=== PATIENT | male | born 1940 | race Caucasian/White ===

== ENCOUNTER 2017-11-08 14:40 | Inpatient (IN) | payer MEDICARE, BC ==
[~2017-11-08] VITALS: Ht 182.9 cm; Wt 81.0 kg
[2017-11-08] MEDS ORDERED: PLEASE ENTER HEIGHT AND WEIGHT MC SCH (14:49)
[2017-11-08] MEDS ORDERED: BROM1.7D9 EACHEYE (14:56)
[2017-11-08] MEDS ORDERED: SODIUM CHLORIDE FLUSH 10ML SYR IVF ONE (15:00)
[2017-11-08] MEDS ORDERED: methylPREDNISolone SOD SUCC 125 MG/2 ML IVP ONE (15:00)
[2017-11-08] MEDS ORDERED: methylPREDNISolone SOD SUCC 125 MG/2 ML ONE (15:01)
[2017-11-08] MEDS ORDERED: ACETAMINOPHEN 325 MG TABLET ONE (15:02)
[2017-11-08 15:15] LABS: BASOPHILS # (AUTO) 0.01 x10^3/uL (0-0.1); BASOPHILS % (AUTO) 0 % (0-1); EOSINOPHILS % (AUTO) 0 % (1-7); LYMPHOCYTES # (AUTO) 0.35 x10^3/uL (1-3.4); LYMPHOCYTES % (AUTO) 2 % (22-44); MD NO; MEAN CORPUSCULAR HEMOGLOBIN 30.1 pg (27.5-34.5); MEAN CORPUSCULAR HGB CONC 33.2 g/dL (33.2-36.2); MEAN CORPUSCULAR VOLUME 90.8 fL (81-97); MEAN PLATELET VOLUME 7.9 fL (7.4-10.4); MONOCYTES # (AUTO) 0.64 x10^3/uL (0.2-0.8); MONOCYTES % (AUTO) 4 % (2-9); NEUTROPHILS # (AUTO) 15.34 x10^3/uL (1.8-6.8); NEUTROPHILS % (AUTO) 94 % (42-75); PLATELET COUNT 207 x10^3/uL (130-400); RED BLOOD COUNT 5.23 x10^6/uL (4.38-5.82); RED CELL DISTRIBUTION WIDTH 16.2 % (9.4-14.8)
[2017-11-08 15:23] LABS: INTERNATIONAL NORMALIZED RATIO 1.05 (0.93-1.1); PROTHROMBIN TIME 10.8 Seconds (9.6-11.5)
[2017-11-08 15:24] LABS: ALANINE AMINOTRANSFERASE 36 U/L (12-78); ALBUMIN 3.3 g/dL (3.4-5.0); ANION GAP 12 mmol/L (5-15); CALCIUM 8.2 mg/dL (8.5-10.1); CHLORIDE 104 mmol/L (98-107); CREATININE 1.46 mg/dL (0.7-1.3)
[2017-11-08 15:28] LABS: ALKALINE PHOSPHATASE 74 U/L (45-117); BILIRUBIN,TOTAL 0.5 mg/dL (0.2-1.0); TOTAL PROTEIN 8.2 g/dL (6.4-8.2)
[2017-11-08] MEDS ORDERED: AZITHROMYCIN 500 MG in SODIUM CHLORIDE 0.9% 250 ML IV ONE (15:30)
[2017-11-08] MEDS ORDERED: SODIUM CHLORIDE 0.9%, 500ML IVBOLUS ONE ×2 (15:30→17:00)
[2017-11-08] MEDS ORDERED: ACETAMINOPHEN 325 MG TABLET PO ONE (15:30)
[2017-11-08 15:31] LABS: RAPID INFLUENZA A Negative (Negative); RAPID INFLUENZA B Negative (Negative)
[2017-11-08] MEDS ORDERED: ASPIRIN 81 MG TABLET CHEW ONE (15:39)
[2017-11-08] MEDS ORDERED: ASPIRIN 81 MG TABLET CHEW PO ONE (16:00)
[2017-11-08] MEDS ORDERED: ASPIRIN 325 MG TABLET PO ONE (16:00)
[2017-11-08] MEDS ORDERED: PLEASE ENTER ALLERGIES MC SCH (16:00)
[2017-11-08] MEDS ORDERED: CEFTRIAXONE PMX 1GM/50ML 50 ML IV ONE (18:00)
[2017-11-08] MEDS ORDERED: ALBUTEROL/IPRATROPIUM 2.5MG/0.5MG, 3 ML ONE (18:23)
[2017-11-08] MEDS ORDERED: CEFTRIAXONE PMX 1GM/50ML 50 ML ONE (18:24)
[2017-11-08] MEDS ORDERED: ALBUTEROL SULFATE 2.5 MG/3 ML NPPB ONE (18:30)
[2017-11-08] MEDS ORDERED: ENOXAPARIN 100 MG/ML SQ ONE (18:30)
[2017-11-08] MEDS ORDERED: ONDANSETRON 2MG/ML, 2ML IVPush PRN (20:00)
[2017-11-08] MEDS ORDERED: ACETAMINOPHEN 325 MG TABLET PO PRN (20:00)
[2017-11-08] MEDS ORDERED: DOCUSATE 100 MG CAPSULE PO PRN (20:00)
[2017-11-08] MEDS ORDERED: BISACODYL 10 MG SUPP PR PRN (20:00)
[2017-11-08] MEDS ORDERED: HEPARIN 5,000 UNITS/ML, 1ML SQ SCH (20:00)
[2017-11-08] MEDS ORDERED: PROMETHAZINE 25 MG/ML, 1ML IM PRN (20:00)
[2017-11-08] MEDS ORDERED: ONDANSETRON ODT 4 MG PO PRN (20:00)
[2017-11-08] MEDS: SODIUM CHLORIDE 0.9% 1,000 ML IV SCH (20:38)
[2017-11-08 20:47] LABS: MD YES; MEAN CORPUSCULAR HEMOGLOBIN 29.1 pg (27.5-34.5); MEAN CORPUSCULAR VOLUME 90.8 fL (81-97); MEAN PLATELET VOLUME 8.3 fL (7.4-10.4); PLATELET COUNT 136 x10^3/uL (130-400)
[2017-11-08 20:48] LABS: BAND#(MANUAL) 4.06 x10^3/uL; BANDS%(MANUAL) 26 % (0-7); LYMPH#(MANUAL) 0.31 x10^3/uL (1-3.4); LYMPHS% (MANUAL) 2 % (22-44); MONOS#(MANUAL) 0.16 x10^3/uL (0.3-2.7); MONOS% (MANUAL) 1 % (2-9); SEG#(MANUAL) 11.08 x10^3/uL (1.8-6.8); SEGS% (MANUAL) 71 % (42-75)
[2017-11-08 20:50] LABS: <PLATELET ESTIMATE> ADEQUATE; <PLT MORPHOLOGY> NORMAL PLT MORPH; ANISOCYTOSIS 1+; POLYCHROMASIA 1+
[2017-11-08 21:17] LABS: HEMOGLOBIN A1C 6.5 % (4.2-6.3)
[2017-11-08] MEDS: ATORVASTATIN 40 MG TABLET PO SCH (21:30)
[2017-11-08] MEDS ORDERED: VANCOMYCIN PER PHARMACY MC PRN (21:30)
[2017-11-08] MEDS ORDERED: SODIUM CHLORIDE 0.9% 1,000 ML IV SCH (22:00)
[2017-11-08] MEDS ORDERED: ENOXAPARIN 100 MG/ML SQ SCH (22:30)
[2017-11-08 22:44] VITALS: BP 106/69
[2017-11-08] MEDS ORDERED: PHARMACOKINETIC MONITORING MC PRN (23:00)
[2017-11-08] MEDS ORDERED: VANCOMYCIN 1,900 MG in SODIUM CHLORIDE 0.9% 250 ML IV SCH (23:00)
[2017-11-08] MEDS ORDERED: PHARMACOKINETIC CONSULTATION MC ONE (23:00)
[2017-11-08] MEDS: PIPERACILLIN/TAZO/PMX 3.375GM 50 ML IV SCH (23:26)
[2017-11-08] MEDS: INSULIN ASPART 100 UNITS/ML, PEN SQ-INSULIN SCH (23:29)
[2017-11-09] MEDS: ALBUTEROL/IPRATROPIUM 2.5MG/0.5MG, 3 ML NPPB PRN ×4 (00:01→19:25)
[2017-11-09 02:16] VITALS: BP 101/65
[2017-11-09] MEDS ORDERED: ACETYLCYSTEINE 10%, 10ML IPPB ONE (05:30)
[2017-11-09] MEDS: PIPERACILLIN/TAZO/PMX 3.375GM 50 ML IV SCH ×4 (05:35→23:46)
[2017-11-09] MEDS: ASPIRIN 325 MG TABLET EC PO SCH (05:35)
[2017-11-09 05:36] LABS: CHLORIDE 106 mmol/L (98-107)
[2017-11-09 05:49] LABS: ALANINE AMINOTRANSFERASE 51 U/L (12-78); ALBUMIN 3.2 g/dL (3.4-5.0); ALKALINE PHOSPHATASE 67 U/L (45-117); ANION GAP 9 mmol/L (5-15); BILIRUBIN,TOTAL 0.3 mg/dL (0.2-1.0); CALCIUM 7.8 mg/dL (8.5-10.1); CHOL/HDL RATIO 4.6; CHOLESTEROL, TOTAL 158 mg/dL (140-239); CREATININE 1.56 mg/dL (0.7-1.3); HDL CHOL % 22 % (26-37); HDL CHOLESTEROL (DIRECT) 34 mg/dL (40-60); LDL CHOLESTEROL,CALCULATED 103 mg/dL (54-169); TOTAL PROTEIN 8.1 g/dL (6.4-8.2); TRIGLYCERIDES 103 mg/dL (50-200); VLDL CHOLESTEROL 21 mg/dL (0-25)
[2017-11-09 06:30] VITALS: BP 102/66
[2017-11-09] MEDS: INSULIN ASPART 100 UNITS/ML, PEN SQ-INSULIN SCH ×4 (07:00→21:32)
[2017-11-09] MEDS ORDERED: HEPARIN 5,000 UNITS/ML, 1ML IV ONE ×2 (09:00→10:00)
[2017-11-09] MEDS ORDERED: HEPARIN 25,000 UNITS/500ML PMX 500 ML IV PRN ×2 (09:00→10:00)
[2017-11-09] MEDS ORDERED: HEPARIN 5,000 UNITS/ML, 1ML IV PRN ×2 (09:00→10:00)
[2017-11-09] MEDS ORDERED: BROMSITE 0.075% OP SCH (12:00)
[2017-11-09 12:11] LABS: MEAN CORPUSCULAR HEMOGLOBIN 30.6 pg (27.5-34.5); MEAN CORPUSCULAR HGB CONC 33.3 g/dL (33.2-36.2); MEAN CORPUSCULAR VOLUME 92.1 fL (81-97); MEAN PLATELET VOLUME 8.5 fL (7.4-10.4); PLATELET COUNT 195 x10^3/uL (130-400); RED BLOOD COUNT 5.09 x10^6/uL (4.38-5.82); RED CELL DISTRIBUTION WIDTH 16.1 % (9.4-14.8)
[2017-11-09] MEDS: SODIUM CHLORIDE 0.9% 1,000 ML IV SCH (12:13)
[2017-11-09 12:29] LABS: MD YES
[2017-11-09] MEDS: FLUTICASONE/VILANTEROL 100-25MCG/INH INH SCH (12:34)
[2017-11-09] MEDS: TAMSULOSIN 0.4 MG CAP.ER.24H PO SCH (12:34)
[2017-11-09 12:35] LABS: BAND#(MANUAL) 3.03 x10^3/uL; BANDS%(MANUAL) 17 % (0-7); LYMPH#(MANUAL) 0.53 x10^3/uL (1-3.4); LYMPHS% (MANUAL) 3 % (22-44); MONOS#(MANUAL) 0.71 x10^3/uL (0.3-2.7); MONOS% (MANUAL) 4 % (2-9); SEGS% (MANUAL) 76 % (42-75)
[2017-11-09 12:36] LABS: <PLATELET ESTIMATE> ADEQUATE; <PLT MORPHOLOGY> NORMAL PLT MORPH; <RBC MORPHOLOGY> NORMAL
[2017-11-09 14:29] VITALS: BP 111/63
[2017-11-09] MEDS: methylPREDNISolone SOD SUCC 125 MG/2 ML IVPush SCH ×2 (17:26→23:46)
[2017-11-09 19:38] VITALS: BP 124/57
[2017-11-09] MEDS: ATORVASTATIN 40 MG TABLET PO SCH (21:00)
[2017-11-10 01:25] VITALS: BP 11/67
[2017-11-10 04:52] LABS: MEAN CORPUSCULAR HEMOGLOBIN 30.6 pg (27.5-34.5); MEAN CORPUSCULAR HGB CONC 33.9 g/dL (33.2-36.2); MEAN CORPUSCULAR VOLUME 90.4 fL (81-97); PLATELET COUNT 173 x10^3/uL (130-400); RED BLOOD COUNT 4.67 x10^6/uL (4.38-5.82); RED CELL DISTRIBUTION WIDTH 16.2 % (9.4-14.8)
[2017-11-10 05:00] LABS: ALBUMIN 2.8 g/dL (3.4-5.0); ANION GAP 7 mmol/L (5-15); CALCIUM 7.6 mg/dL (8.5-10.1); CHLORIDE 105 mmol/L (98-107)
[2017-11-10 05:04] LABS: ALANINE AMINOTRANSFERASE 45 U/L (12-78); ALKALINE PHOSPHATASE 50 U/L (45-117); BILIRUBIN,TOTAL 0.2 mg/dL (0.2-1.0); CREATININE 1.13 mg/dL (0.7-1.3); TOTAL PROTEIN 7.1 g/dL (6.4-8.2)
[2017-11-10] MEDS: PIPERACILLIN/TAZO/PMX 3.375GM 50 ML IV SCH ×4 (05:32→22:52)
[2017-11-10] MEDS: methylPREDNISolone SOD SUCC 125 MG/2 ML IVPush SCH ×4 (05:32→22:51)
[2017-11-10] MEDS: HEPARIN 5,000 UNITS/ML, 1ML IV PRN ×2 (05:33→11:49)
[2017-11-10] MEDS: SODIUM CHLORIDE 0.9% 1,000 ML IV SCH ×2 (05:33→22:52)
[2017-11-10 05:58] LABS: MD YES
[2017-11-10 05:59] LABS: BAND#(MANUAL) 1.57 x10^3/uL; BANDS%(MANUAL) 12 % (0-7); LYMPH#(MANUAL) 0.39 x10^3/uL (1-3.4); LYMPHS% (MANUAL) 3 % (22-44); MONOS#(MANUAL) 0.13 x10^3/uL (0.3-2.7); MONOS% (MANUAL) 1 % (2-9); SEGS% (MANUAL) 84 % (42-75)
[2017-11-10 06:00] LABS: <PLATELET ESTIMATE> ADEQUATE; <RBC MORPHOLOGY> NORMAL
[2017-11-10 06:01] LABS: LARGE PLATELETS 1+
[2017-11-10 06:36] VITALS: BP 122/74
[2017-11-10] MEDS: ASPIRIN 325 MG TABLET EC PO SCH (07:57)
[2017-11-10] MEDS: TAMSULOSIN 0.4 MG CAP.ER.24H PO SCH (07:57)
[2017-11-10] MEDS: INSULIN ASPART 100 UNITS/ML, PEN SQ-INSULIN SCH ×4 (07:58→20:22)
[2017-11-10] MEDS: FLUTICASONE/VILANTEROL 100-25MCG/INH INH SCH (07:58)
[2017-11-10] MEDS: BROMSITE 0.075% OP SCH (07:58)
[2017-11-10] MEDS: VANCOMYCIN 1,600 MG in SODIUM CHLORIDE 0.9% 250 ML IV SCH (13:26)
[2017-11-10 13:56] VITALS: BP 119/76
[2017-11-10 16:35] LABS: CLOSTRIDIUM DIFFICILE ANTIGEN NEGATIVE; CLOSTRIDIUM DIFFICILE TOXIN NEGATIVE (Negative)
[2017-11-10] MEDS: ATORVASTATIN 40 MG TABLET PO SCH (20:20)
[2017-11-10 20:22] VITALS: BP 145/79
[2017-11-11 00:32] VITALS: BP 145/81
[2017-11-11] MEDS: PIPERACILLIN/TAZO/PMX 3.375GM 50 ML IV SCH ×3 (05:19→16:51)
[2017-11-11] MEDS: methylPREDNISolone SOD SUCC 125 MG/2 ML IVPush SCH ×3 (05:19→16:50)
[2017-11-11] MEDS: ASPIRIN 325 MG TABLET EC PO SCH (05:19)
[2017-11-11 05:58] LABS: BASOPHILS % (AUTO) 0 % (0-1); EOSINOPHILS % (AUTO) 0 % (1-7); LYMPHOCYTES # (AUTO) 0.43 x10^3/uL (1-3.4); LYMPHOCYTES % (AUTO) 3 % (22-44); MD NO; MEAN CORPUSCULAR HEMOGLOBIN 30.1 pg (27.5-34.5); MEAN CORPUSCULAR HGB CONC 33.3 g/dL (33.2-36.2); MEAN CORPUSCULAR VOLUME 90.3 fL (81-97); MONOCYTES # (AUTO) 0.57 x10^3/uL (0.2-0.8); MONOCYTES % (AUTO) 4 % (2-9); NEUTROPHILS % (AUTO) 92 % (42-75); PLATELET COUNT 183 x10^3/uL (130-400); RED BLOOD COUNT 4.62 x10^6/uL (4.38-5.82); RED CELL DISTRIBUTION WIDTH 15.5 % (9.4-14.8)
[2017-11-11] MEDS: HEPARIN 25,000 UNITS/500ML PMX 500 ML IV PRN ×2 (05:59→22:50)
[2017-11-11 06:10] LABS: CHLORIDE 103 mmol/L (98-107)
[2017-11-11 06:37] LABS: ANION GAP 8 mmol/L (5-15); CREATININE 0.93 mg/dL (0.7-1.3)
[2017-11-11] MEDS: HEPARIN 5,000 UNITS/ML, 1ML IV PRN ×2 (06:43→14:01)
[2017-11-11 06:50] VITALS: BP 152/85
[2017-11-11] MEDS: TAMSULOSIN 0.4 MG CAP.ER.24H PO SCH (08:09)
[2017-11-11] MEDS: FLUTICASONE/VILANTEROL 100-25MCG/INH INH SCH (08:09)
[2017-11-11] MEDS: BROMSITE 0.075% OP SCH (08:10)
[2017-11-11] MEDS: INSULIN ASPART 100 UNITS/ML, PEN SQ-INSULIN SCH ×4 (08:10→21:55)
[2017-11-11] MEDS ORDERED: FUROSEMIDE 20 MG/2 ML IV ONE (10:00)
[2017-11-11] MEDS: ALBUTEROL/IPRATROPIUM 2.5MG/0.5MG, 3 ML NPPB PRN (10:46)
[2017-11-11 13:55] VITALS: BP 119/65
[2017-11-11 18:39] VITALS: BP 133/75
[2017-11-11] MEDS: ATORVASTATIN 40 MG TABLET PO SCH (21:54)
[2017-11-12] MEDS: methylPREDNISolone SOD SUCC 125 MG/2 ML IVPush SCH ×4 (01:12→19:45)
[2017-11-12] MEDS: PIPERACILLIN/TAZO/PMX 3.375GM 50 ML IV SCH ×4 (01:12→19:45)
[2017-11-12 01:38] LABS: BASOPHILS % (AUTO) 0 % (0-1); EOSINOPHILS % (AUTO) 0 % (1-7); LYMPHOCYTES # (AUTO) 0.31 x10^3/uL (1-3.4); LYMPHOCYTES % (AUTO) 3 % (22-44); MD NO; MEAN CORPUSCULAR HEMOGLOBIN 29.8 pg (27.5-34.5); MEAN CORPUSCULAR HGB CONC 33.1 g/dL (33.2-36.2); MEAN CORPUSCULAR VOLUME 90.1 fL (81-97); MEAN PLATELET VOLUME 7.9 fL (7.4-10.4); MONOCYTES # (AUTO) 0.72 x10^3/uL (0.2-0.8); MONOCYTES % (AUTO) 7 % (2-9); NEUTROPHILS # (AUTO) 9.84 x10^3/uL (1.8-6.8); NEUTROPHILS % (AUTO) 91 % (42-75); PLATELET COUNT 181 x10^3/uL (130-400); RED BLOOD COUNT 4.32 x10^6/uL (4.38-5.82); RED CELL DISTRIBUTION WIDTH 15.4 % (9.4-14.8)
[2017-11-12 01:49] LABS: ANION GAP 7 mmol/L (5-15); CHLORIDE 103 mmol/L (98-107); CREATININE 0.95 mg/dL (0.7-1.3)
[2017-11-12] MEDS: VANCOMYCIN 1,600 MG in SODIUM CHLORIDE 0.9% 250 ML IV SCH (02:48)
[2017-11-12 05:06] VITALS: BP 139/79
[2017-11-12] MEDS: FLUTICASONE/VILANTEROL 100-25MCG/INH INH SCH (08:04)
[2017-11-12] MEDS: BROMSITE 0.075% OP SCH (08:04)
[2017-11-12] MEDS: ASPIRIN 325 MG TABLET EC PO SCH (08:05)
[2017-11-12] MEDS: TAMSULOSIN 0.4 MG CAP.ER.24H PO SCH (08:05)
[2017-11-12] MEDS: INSULIN ASPART 100 UNITS/ML, PEN SQ-INSULIN SCH ×4 (08:13→21:00)
[2017-11-12 08:49] VITALS: BP 137/76
[2017-11-12 13:54] VITALS: BP 127/75
[2017-11-12 19:14] VITALS: BP 127/74
[2017-11-12] MEDS: ATORVASTATIN 40 MG TABLET PO SCH (21:00)
[2017-11-12] MEDS: VANCOMYCIN 1,800 MG in SODIUM CHLORIDE 0.9% 250 ML IV SCH (21:32)
[2017-11-13] MEDS: PIPERACILLIN/TAZO/PMX 3.375GM 50 ML IV SCH ×4 (01:47→22:55)
[2017-11-13] MEDS: methylPREDNISolone SOD SUCC 125 MG/2 ML IVPush SCH ×2 (01:47→22:55)
[2017-11-13] MEDS ORDERED: ZIPRASIDONE 20 MG INJ IM ONE ×2 (02:30)
[2017-11-13 04:44] VITALS: BP 132/70
[2017-11-13] MEDS: INSULIN ASPART 100 UNITS/ML, PEN SQ-INSULIN SCH ×4 (07:00→21:00)
[2017-11-13 07:05] VITALS: BP 131/78
[2017-11-13] MEDS: PANTOPRAZOLE 40 MG IV IVPush SCH ×2 (09:30→22:55)
[2017-11-13] MEDS ORDERED: HALOPERIDOL 5 MG/ML IM PRN (09:30)
[2017-11-13] MEDS: TAMSULOSIN 0.4 MG CAP.ER.24H PO SCH (09:58)
[2017-11-13] MEDS: FLUTICASONE/VILANTEROL 100-25MCG/INH INH SCH (09:58)
[2017-11-13] MEDS: ASPIRIN 325 MG TABLET EC PO SCH (09:59)
[2017-11-13] MEDS: BROMSITE 0.075% OP SCH (09:59)
[2017-11-13] MEDS ORDERED: ENOXAPARIN 40 MG/0.4 ML SQ SCH (10:30)
[2017-11-13 13:32] VITALS: BP 148/73
[2017-11-13] MEDS: METOPROLOL TARTRATE 25 MG TABLET PO SCH (19:22)
[2017-11-13 19:24] VITALS: BP 136/71
[2017-11-13 20:16] VITALS: BP 147/81
[2017-11-13] MEDS: ATORVASTATIN 40 MG TABLET PO SCH (21:29)
[2017-11-14 00:10] LABS: OCCULT BLOOD POSITIVE (NEGATIVE)
[2017-11-14] MEDS: VANCOMYCIN 1,800 MG in SODIUM CHLORIDE 0.9% 250 ML IV SCH (00:24)
[2017-11-14 01:11] VITALS: BP 157/80
[2017-11-14] MEDS: PIPERACILLIN/TAZO/PMX 3.375GM 50 ML IV SCH ×4 (06:01→23:47)
[2017-11-14 07:34] VITALS: BP 149/77
[2017-11-14] MEDS: BROMSITE 0.075% OP SCH (08:32)
[2017-11-14] MEDS: METOPROLOL TARTRATE 25 MG TABLET PO SCH ×2 (08:32→17:56)
[2017-11-14] MEDS: TAMSULOSIN 0.4 MG CAP.ER.24H PO SCH (08:32)
[2017-11-14] MEDS: FLUTICASONE/VILANTEROL 100-25MCG/INH INH SCH (08:32)
[2017-11-14] MEDS: PANTOPRAZOLE 40 MG IV IVPush SCH ×2 (08:33→21:07)
[2017-11-14] MEDS: ASPIRIN 81 MG TABLET CHEW PO SCH (08:46)
[2017-11-14] MEDS: INSULIN ASPART 100 UNITS/ML, PEN SQ-INSULIN SCH ×4 (08:47→21:15)
[2017-11-14] MEDS: methylPREDNISolone SOD SUCC 125 MG/2 ML IVPush SCH ×2 (12:09→23:44)
[2017-11-14 13:01] VITALS: BP 136/70
[2017-11-14 18:07] VITALS: BP 154/73
[2017-11-14 19:53] VITALS: BP 148/81
[2017-11-14] MEDS: ATORVASTATIN 40 MG TABLET PO SCH (21:07)
[2017-11-15 00:18] VITALS: BP 151/79
[2017-11-15] MEDS: VANCOMYCIN 1,800 MG in SODIUM CHLORIDE 0.9% 250 ML IV SCH (00:41)
[2017-11-15] MEDS: PIPERACILLIN/TAZO/PMX 3.375GM 50 ML IV SCH ×4 (06:06→23:02)
[2017-11-15 06:31] VITALS: BP 166/82
[2017-11-15] MEDS: INSULIN ASPART 100 UNITS/ML, PEN SQ-INSULIN SCH ×4 (08:08→21:55)
[2017-11-15] MEDS: BROMSITE 0.075% OP SCH (09:00)
[2017-11-15] MEDS: TAMSULOSIN 0.4 MG CAP.ER.24H PO SCH (09:52)
[2017-11-15] MEDS: PANTOPRAZOLE 40 MG IV IVPush SCH ×2 (09:52→21:46)
[2017-11-15] MEDS: FLUTICASONE/VILANTEROL 100-25MCG/INH INH SCH (09:52)
[2017-11-15] MEDS: ASPIRIN 81 MG TABLET CHEW PO SCH (09:52)
[2017-11-15] MEDS: methylPREDNISolone SOD SUCC 125 MG/2 ML IVPush SCH (11:45)
[2017-11-15 14:06] VITALS: BP 133/78
[2017-11-15] MEDS: METOPROLOL TARTRATE 25 MG TABLET PO SCH (17:05)
[2017-11-15 19:56] VITALS: BP 130/70
[2017-11-15] MEDS: ATORVASTATIN 40 MG TABLET PO SCH (21:46)
[2017-11-16] MEDS: VANCOMYCIN 1,800 MG in SODIUM CHLORIDE 0.9% 250 ML IV SCH ×2 (01:58→23:58)
[2017-11-16 02:00] VITALS: BP 146/77
[2017-11-16] MEDS: METOPROLOL TARTRATE 25 MG TABLET PO SCH ×3 (05:56→23:58)
[2017-11-16] MEDS: PIPERACILLIN/TAZO/PMX 3.375GM 50 ML IV SCH ×3 (05:56→17:45)
[2017-11-16] MEDS: INSULIN ASPART 100 UNITS/ML, PEN SQ-INSULIN SCH ×4 (07:00→20:47)
[2017-11-16] MEDS: BROMSITE 0.075% OP SCH (09:00)
[2017-11-16] MEDS: TAMSULOSIN 0.4 MG CAP.ER.24H PO SCH (09:00)
[2017-11-16] MEDS: FLUTICASONE/VILANTEROL 100-25MCG/INH INH SCH (10:01)
[2017-11-16] MEDS: ASPIRIN 81 MG TABLET CHEW PO SCH (10:03)
[2017-11-16] MEDS: PANTOPROZOLE 40MG TABLET PO SCH ×2 (10:09→20:47)
[2017-11-16 13:00] VITALS: BP 137/72
[2017-11-16 13:20] VITALS: BP 118/64
[2017-11-16 20:44] VITALS: BP 155/84
[2017-11-16] MEDS: ATORVASTATIN 40 MG TABLET PO SCH (20:47)
[2017-11-17 00:49] VITALS: BP 160/90
[2017-11-17] MEDS: PIPERACILLIN/TAZO/PMX 3.375GM 50 ML IV SCH ×4 (02:39→23:28)
[2017-11-17] MEDS: METOPROLOL TARTRATE 25 MG TABLET PO SCH ×3 (06:09→18:33)
[2017-11-17 06:34] LABS: ANION GAP 8 mmol/L (5-15); CALCIUM 8.2 mg/dL (8.5-10.1); CHLORIDE 101 mmol/L (98-107); CREATININE 0.94 mg/dL (0.7-1.3)
[2017-11-17] MEDS: INSULIN ASPART 100 UNITS/ML, PEN SQ-INSULIN SCH ×4 (07:00→21:27)
[2017-11-17] MEDS ORDERED: FUROSEMIDE 40 MG/4 ML IV ONE (08:00)
[2017-11-17 08:40] VITALS: BP 123/68
[2017-11-17] MEDS: PANTOPROZOLE 40MG TABLET PO SCH ×2 (09:12→21:08)
[2017-11-17] MEDS: FLUTICASONE/VILANTEROL 100-25MCG/INH INH SCH (09:12)
[2017-11-17] MEDS: ASPIRIN 81 MG TABLET CHEW PO SCH (09:13)
[2017-11-17] MEDS: TAMSULOSIN 0.4 MG CAP.ER.24H PO SCH (09:16)
[2017-11-17] MEDS: BROMSITE 0.075% OP SCH (09:16)
[2017-11-17 12:33] VITALS: BP 115/72
[2017-11-17 14:46] VITALS: BP 116/84
[2017-11-17] MEDS ORDERED: METO25TA35 PO (17:31)
[2017-11-17] MEDS ORDERED: ASPI-515 PO (17:31)
[2017-11-17] MEDS ORDERED: ATOR40TA78 PO (17:31)
[2017-11-17] MEDS ORDERED: FLUT1AER INH (17:31)
[2017-11-17] MEDS ORDERED: TAMS-11 PO (17:31)
[2017-11-17] MEDS ORDERED: CEFD300C37 PO (17:31)
[2017-11-17] MEDS ORDERED: PRED20TA PO (17:31)
[2017-11-17 18:41] VITALS: BP 107/66
[2017-11-17] MEDS: ATORVASTATIN 40 MG TABLET PO SCH (21:08)
[2017-11-18] MEDS: METOPROLOL TARTRATE 25 MG TABLET PO SCH ×4 (00:29→17:18)
[2017-11-18] MEDS: VANCOMYCIN 1,800 MG in SODIUM CHLORIDE 0.9% 250 ML IV SCH (00:29)
[2017-11-18 00:31] VITALS: BP 120/70
[2017-11-18] MEDS: PIPERACILLIN/TAZO/PMX 3.375GM 50 ML IV SCH ×4 (05:51→23:04)
[2017-11-18 05:55] VITALS: BP 112/69
[2017-11-18 06:44] VITALS: BP 110/67
[2017-11-18] MEDS: INSULIN ASPART 100 UNITS/ML, PEN SQ-INSULIN SCH ×4 (07:00→21:45)
[2017-11-18] MEDS: FLUTICASONE/VILANTEROL 100-25MCG/INH INH SCH (09:00)
[2017-11-18] MEDS: BROMSITE 0.075% OP SCH (09:00)
[2017-11-18] MEDS: TAMSULOSIN 0.4 MG CAP.ER.24H PO SCH (09:30)
[2017-11-18] MEDS: PANTOPROZOLE 40MG TABLET PO SCH ×2 (09:30→21:45)
[2017-11-18] MEDS: ASPIRIN 81 MG TABLET CHEW PO SCH (09:30)
[2017-11-18 13:20] VITALS: BP 115/66
[2017-11-18 19:46] VITALS: BP 100/64
[2017-11-18] MEDS: ATORVASTATIN 40 MG TABLET PO SCH (21:37)
[2017-11-19] MEDS: METOPROLOL TARTRATE 25 MG TABLET PO SCH ×4 (00:08→17:35)
[2017-11-19] MEDS: VANCOMYCIN 1,800 MG in SODIUM CHLORIDE 0.9% 250 ML IV SCH (00:26)
[2017-11-19 01:23] VITALS: BP 109/67
[2017-11-19] MEDS: PIPERACILLIN/TAZO/PMX 3.375GM 50 ML IV SCH ×2 (05:01→11:00)
[2017-11-19 06:33] VITALS: BP 102/63
[2017-11-19] MEDS: INSULIN ASPART 100 UNITS/ML, PEN SQ-INSULIN SCH ×4 (07:00→21:00)
[2017-11-19] MEDS: TAMSULOSIN 0.4 MG CAP.ER.24H PO SCH (08:20)
[2017-11-19] MEDS: ASPIRIN 81 MG TABLET CHEW PO SCH (08:20)
[2017-11-19] MEDS: PANTOPROZOLE 40MG TABLET PO SCH ×2 (08:20→21:25)
[2017-11-19] MEDS: FLUTICASONE/VILANTEROL 100-25MCG/INH INH SCH (08:21)
[2017-11-19] MEDS: BROMSITE 0.075% OP SCH (08:21)
[2017-11-19 13:51] VITALS: BP 113/65
[2017-11-19 18:57] VITALS: BP 104/60
[2017-11-19] MEDS: ATORVASTATIN 40 MG TABLET PO SCH (21:24)
[2017-11-19] MEDS: CEFDINIR 300 MG CAPSULE PO SCH (21:25)
[2017-11-19] MEDS: DOXYCYCLINE 100MG TABLET PO SCH (21:25)
[2017-11-20 00:39] VITALS: BP 113/72
[2017-11-20] MEDS: METOPROLOL TARTRATE 25 MG TABLET PO SCH ×5 (00:44→23:19)
[2017-11-20 05:06] LABS: BASOPHILS # (AUTO) 0.03 x10^3/uL (0-0.1); BASOPHILS % (AUTO) 0 % (0-1); EOSINOPHILS # (AUTO) 0.15 x10^3/uL (0-0.4); EOSINOPHILS % (AUTO) 1 % (1-7); LYMPHOCYTES # (AUTO) 1.15 x10^3/uL (1-3.4); LYMPHOCYTES % (AUTO) 8 % (22-44); MD NO; MEAN CORPUSCULAR HEMOGLOBIN 30.2 pg (27.5-34.5); MEAN CORPUSCULAR HGB CONC 33.2 g/dL (33.2-36.2); MEAN CORPUSCULAR VOLUME 90.9 fL (81-97); MEAN PLATELET VOLUME 7.9 fL (7.4-10.4); MONOCYTES # (AUTO) 0.89 x10^3/uL (0.2-0.8); MONOCYTES % (AUTO) 6 % (2-9); NEUTROPHILS # (AUTO) 11.69 x10^3/uL (1.8-6.8); NEUTROPHILS % (AUTO) 84 % (42-75); PLATELET COUNT 317 x10^3/uL (130-400); RED BLOOD COUNT 4.07 x10^6/uL (4.38-5.82); RED CELL DISTRIBUTION WIDTH 15.7 % (9.4-14.8)
[2017-11-20 05:14] LABS: ANION GAP 6 mmol/L (5-15); CALCIUM 8.2 mg/dL (8.5-10.1); CHLORIDE 104 mmol/L (98-107)
[2017-11-20 05:16] LABS: CREATININE 0.78 mg/dL (0.7-1.3)
[2017-11-20 05:49] VITALS: BP 126/73
[2017-11-20] MEDS: INSULIN ASPART 100 UNITS/ML, PEN SQ-INSULIN SCH ×4 (07:00→20:11)
[2017-11-20 07:35] VITALS: BP 117/66
[2017-11-20] MEDS: FLUTICASONE/VILANTEROL 100-25MCG/INH INH SCH (08:24)
[2017-11-20] MEDS: PANTOPROZOLE 40MG TABLET PO SCH ×2 (08:24→20:14)
[2017-11-20] MEDS: CEFDINIR 300 MG CAPSULE PO SCH ×2 (08:24→20:14)
[2017-11-20] MEDS: BROMSITE 0.075% OP SCH (08:24)
[2017-11-20] MEDS: ASPIRIN 81 MG TABLET CHEW PO SCH (08:24)
[2017-11-20] MEDS: DOXYCYCLINE 100MG TABLET PO SCH ×2 (08:24→20:14)
[2017-11-20] MEDS: TAMSULOSIN 0.4 MG CAP.ER.24H PO SCH (08:24)
[2017-11-20 13:59] VITALS: BP 105/62
[2017-11-20 18:35] VITALS: BP 113/68
[2017-11-20] MEDS: ATORVASTATIN 40 MG TABLET PO SCH (20:14)
[2017-11-21 02:40] VITALS: BP 121/70
[2017-11-21] MEDS: METOPROLOL TARTRATE 25 MG TABLET PO SCH ×2 (05:11→11:40)
[2017-11-21] MEDS: INSULIN ASPART 100 UNITS/ML, PEN SQ-INSULIN SCH ×3 (07:00→16:00)
[2017-11-21 07:02] VITALS: BP 114/72
[2017-11-21] MEDS: PANTOPROZOLE 40MG TABLET PO SCH (08:27)
[2017-11-21] MEDS: TAMSULOSIN 0.4 MG CAP.ER.24H PO SCH (08:27)
[2017-11-21] MEDS: FLUTICASONE/VILANTEROL 100-25MCG/INH INH SCH (08:27)
[2017-11-21] MEDS: DOXYCYCLINE 100MG TABLET PO SCH (08:27)
[2017-11-21] MEDS: ASPIRIN 81 MG TABLET CHEW PO SCH (08:27)
[2017-11-21] MEDS: CEFDINIR 300 MG CAPSULE PO SCH (08:27)
[2017-11-21] MEDS: BROMSITE 0.075% OP SCH (08:28)
[2017-11-21 13:19] VITALS: BP 122/65
== END 2017-11-21 18:45 | disposition home or self-care (01) | DRG 871 ==
LOC: ED 17:28 → EDIP 18:15 → 5SO 22:13 → 3NE 11-17 14:33
PROVIDERS: ADMIT Surgery; ATTEND Family Medicine
DX: A41.9 Sepsis, unspecified organism (principal); J96.01 Acute respiratory failure with hypoxia; I21.4 Non-ST elevation (NSTEMI) myocardial infarction; J69.0 Pneumonitis due to inhalation of food and vomit; N17.9 Acute kidney failure, unspecified; G93.40 Encephalopathy, unspecified; J96.21 Acute and chronic respiratory failure with hypoxia; J44.1 Chronic obstructive pulmonary disease with (acute) exacerbation; J98.11 Atelectasis; R65.20 Severe sepsis without septic shock; E11.22 Type 2 diabetes mellitus with diabetic chronic kidney disease; E78.5 Hyperlipidemia, unspecified; E86.0 Dehydration; F03.90 Unspecified dementia, unspecified severity, without behavioral disturbance, psychotic disturbance, mood disturbance, and anxiety; I25.10 Atherosclerotic heart disease of native coronary artery without angina pectoris; W19.XXXA Unspecified fall, initial encounter; K44.9 Diaphragmatic hernia without obstruction or gangrene; Z51.5 Encounter for palliative care; Z66 Do not resuscitate; Z87.891 Personal history of nicotine dependence; Y93.89 Activity, other specified; Y92.89 Other specified places as the place of occurrence of the external cause
CPT/HCPCS: 36415; 36600; 51702; 70450; 71010; 71020; 71045; 71046; 71275; 80048; 80053; 80061; 80202; 82272; 82803; 82962; 83036; 83605; 83735; 83880; 84100; 84145; 84443; 84484; 85025; 85520; 85610; 85730; 86141; 86480; 87040; 87324; 87400; 93005; 93306; 94640; 96365; 96366; 96367; 96372; 96375; J0456; J0696; J1644; J1650; J1815; J1940; J2543; J3370; J3486; J7608; J7613; J7620; 92523-GN; C9113; J2930; J7030; J7040; J7050; J7512